=== PATIENT | female | born 1990 | race Caucasian/White ===

== ENCOUNTER 2021-12-02 04:00 | Inpatient (IN) ==
[2021-12-02] MEDS ORDERED: EPHEDrine 50 MG/ML VIAL IVP PRN (12:10)
[2021-12-02] MEDS ORDERED: Azithromycin 500 MG in 0.9 % Sodium Chloride 250 ML IVPB PRN (12:51)
[2021-12-02] MEDS ORDERED: miSOPROStoL 25 MCG TABLET PO PRN (12:51)
[2021-12-02] MEDS ORDERED: Ondansetron 4 MG/2 ML VIAL IVP PRN (12:51)
[2021-12-02] MEDS ORDERED: Naloxone 0.4 MG/ML INJ IVP PRN (12:51)
[2021-12-02] MEDS ORDERED: *HR* Nalbuphine 10 MG/ML AMPUL IV PRN (12:51)
[2021-12-02] MEDS ORDERED: Metoclopramide 10 MG/2 ML VIAL IVP PRN (12:51)
[2021-12-02] MEDS ORDERED: Famotidine 20 MG/2 ML VIAL IVP PRN (12:51)
[2021-12-02 13:38] LABS: Amphetamine Screen,Urine Negative ng/mL (Cutoff=1000); Barbiturate Screen,Urine Negative ng/mL (Cutoff=200); Benzodiazepines Screen,Urine Negative ng/mL (Cutoff=200); Cannabinoid Screen,Urine Negative ng/mL (Cutoff = 50); Cocaine Screen,Urine Negative ng/mL (Cutoff= 300); Opiate Screen,Urine Negative ng/mL (Cutoff=300); Phencyclidine Screen,Urine Negative ng/mL (Cutoff=25)
[2021-12-02 14:15] LABS: Basophils # 0.1 K/mcL (0.0-0.2); Basophils % 0.4 %; Eosinophils # 0.2 K/mcL (0.0-0.6); Hematocrit 35.5 % (35.3-44.9); Hemoglobin 11.8 g/dL (11.5-15.4); Lymphocytes # 2.1 K/mcL (0.6-4.6); Lymphocytes % 17.6 %; Mean Corpuscular HGB Conc 33.2 g/dL (31.6-35.5); Mean Corpuscular Hemoglobin 28.7 pg (28.0-33.3); Mean Corpuscular Volume 86.4 fL (83.0-100.0); Monocytes # 0.8 K/mcL (0.0-1.3); Monocytes % 7.1 %; Neutrophils # 8.6 K/mcL (1.6-8.9); Platelet Count 381 K/mcL (140-400); Red Blood Count 4.11 M/mcL (3.82-4.97); Red Cell Distribution Width 13.6 % (11.5-14.5); Segmented Neutrophils % 71.9 %; White Blood Count 11.9 K/mcL (4.3-11.1)
[2021-12-02] MEDS: Ringers Solution, Lactated 1,000 ML IVC SCH (14:23)
[2021-12-02] MEDS ORDERED: Oxytocin 30 UNIT/503 ML BAG IVC SCH (18:30)
[2021-12-03] MEDS: Epidural Premix (fent/bupiv) 110 ML EP SCH ×2 (01:29→09:31)
[2021-12-03] MEDS: Ringers Solution, Lactated 1,000 ML IVC SCH (11:08)
[2021-12-03] MEDS ORDERED: 0.9 % Sodium Chloride 1,000 ML ONE (11:50)
[2021-12-03] MEDS ORDERED: Methylergonovine 0.2 MG/ML AMPUL IM ONE (14:44)
[2021-12-03] MEDS ORDERED: Lidocaine/EPI 1:200k 2% PF 20 ML VIAL ONE (22:43)
[2021-12-03] MEDS ORDERED: Ketorolac 30 MG/ML VIAL ONE (22:43)
[2021-12-03] MEDS ORDERED: Ondansetron 4 MG/2 ML VIAL ONE (22:43)
[2021-12-03] MEDS ORDERED: Acetaminophen IV 1,000 MG/100 ML BAG IVPB ONE (22:44)
[2021-12-03] MEDS ORDERED: Ketamine *HR* 500 MG/10 ML MDV ONE (23:07)
[2021-12-03] MEDS ORDERED: Ringers Solution, Lactated 1,000 ML ONE (23:10)
[2021-12-03] MEDS ORDERED: *HR* Morphine Sulfate/PF 10 MG/10 ML AMPUL ONE (23:16)
[2021-12-03] MEDS ORDERED: *HR* Promethazine 25 MG/ML VIAL ONE (23:19)
[2021-12-03] MEDS ORDERED: Famotidine 20 MG TABLET PO PRN (23:49)
[2021-12-04] MEDS ORDERED: Oxytocin 30 UNIT/503 ML BAG IVC SCH (03:07)
[2021-12-04] MEDS ORDERED: Rho Immune Globulin 1,500 UNIT SYRINGE IM ONE (03:07)
[2021-12-04] MEDS ORDERED: Simethicone 80 MG TAB.CHEW PO PRN (03:07)
[2021-12-04] MEDS ORDERED: Ondansetron 4 MG/2 ML VIAL IVP PRN (03:07)
[2021-12-04 06:27] LABS: Basophils % 0.2 %; Hematocrit 30.1 % (35.3-44.9); Immature Granulocytes % 0.5 % (0-4); Lymphocytes # 1.5 K/mcL (0.6-4.6); Lymphocytes % 6.9 %; Mean Corpuscular HGB Conc 33.9 g/dL (31.6-35.5); Mean Corpuscular Hemoglobin 29.6 pg (28.0-33.3); Mean Corpuscular Volume 87.2 fL (83.0-100.0); Mean Platelet Volume 9.5 fL (9.4-12.4); Monocytes # 1.2 K/mcL (0.0-1.3); Monocytes % 5.4 %; Neutrophils # 19.3 K/mcL (1.6-8.9); Platelet Count 308 K/mcL (140-400); Red Blood Count 3.45 M/mcL (3.82-4.97)
[2021-12-04 06:29] LABS: Hemoglobin 10.2 g/dL (11.5-15.4); White Blood Count 22.2 K/mcL (4.3-11.1)
[2021-12-04] MEDS: Ibuprofen 600 MG TABLET PO SCH ×3 (06:45→18:01)
[2021-12-04] MEDS: Ringers Solution, Lactated 1,000 ML IVC SCH ×2 (06:46→20:49)
[2021-12-04] MEDS: Acetaminophen 325 MG TABLET PO SCH ×3 (06:46→18:01)
[2021-12-04] MEDS: cephALEXin 500 MG CAPSULE PO SCH ×3 (08:17→20:49)
[2021-12-04] MEDS: metroNIDAZOLE 500 MG TABLET PO SCH ×3 (08:17→20:48)
[2021-12-04] MEDS: *HR* Enoxaparin 60 MG/0.6 ML SYRINGE SQ SCH ×2 (08:17→20:49)
[2021-12-04] MEDS ORDERED: Prenatal Vit/FA 1 EACH TABLET PO SCH (09:00)
[2021-12-04] MEDS: *HR* OxyCODONE Immed Rel 5 MG TABLET PO PRN ×2 (16:14→20:48)
[2021-12-04] MEDS ORDERED: Perflutren Lipid Microsphere 1.3 ML in 0.9 % Sodium Chloride 8.7 ML IVP PRN (19:50)
[2021-12-04 21:00] VITALS: O2SAT 98
[2021-12-05] MEDS: Acetaminophen 325 MG TABLET PO SCH (01:22)
[2021-12-05] MEDS: Ibuprofen 600 MG TABLET PO SCH (01:22)
[2021-12-05 01:25] VITALS: TEMP 97.9
[2021-12-05 07:10] VITALS: BP 101/55
[2021-12-05 10:43] VITALS: PULSE 100
[2021-12-05] MEDS: cephALEXin 500 MG CAPSULE PO SCH (11:45)
[2021-12-05] MEDS: metroNIDAZOLE 500 MG TABLET PO SCH (11:45)
[2021-12-05 11:52] LABS: Basophils # 0.1 K/mcL (0.0-0.2); Basophils % 0.3 %; Eosinophils # 0.3 K/mcL (0.0-0.6); Eosinophils % 1.6 %; Hematocrit 27.5 % (35.3-44.9); Immature Granulocytes % 1.9 % (0-4); Lymphocytes # 1.9 K/mcL (0.6-4.6); Lymphocytes % 9.1 %; Mean Corpuscular HGB Conc 32.7 g/dL (31.6-35.5); Mean Corpuscular Hemoglobin 28.9 pg (28.0-33.3); Mean Corpuscular Volume 88.4 fL (83.0-100.0); Mean Platelet Volume 9.4 fL (9.4-12.4); Monocytes # 0.6 K/mcL (0.0-1.3); Neutrophils # 17.2 K/mcL (1.6-8.9); Platelet Count 322 K/mcL (140-400); Red Blood Count 3.11 M/mcL (3.82-4.97); Red Cell Distribution Width 14.3 % (11.5-14.5); Segmented Neutrophils % 84.1 %; White Blood Count 20.5 K/mcL (4.3-11.1)
== END 2021-12-05 14:45 | disposition home or self-care (01) | DRG 788 ==
LOC: 1NENULAB 11:53 → 1NENUOBS 12-04 02:18
PROVIDERS: ADMIT Student in an Organized Health Care Education/Training Program; ATTEND Student in an Organized Health Care Education/Training Program